=== PATIENT | male | born 1965 | race Caucasian/White ===

== ENCOUNTER 2017-05-23 16:05 | Emergency (ER) | payer BC, MEDICAID ==
[2017-05-23] MEDS ORDERED: HYDROCODONE/APAP 5/325 TAB PO ONE (16:20)
--- NOTE | 2017-05-23 16:49 | EDPHY ---
H & P Stated Complaint: post surgical(meniscus) r leg swelling and pain - Personal History Current Tetanus/Diphtheria Vaccine: Yes Tetanus Vaccine Date: 2008 - Medical/Surgical History Hx Asthma: No Hx Chronic Respiratory Disease: Yes Hx Diabetes: No Hx Cardiac Disease: No Hx Renal Disease: No Hx Cirrhosis: No Hx Alcoholism: No Hx HIV/AIDS: No Hx Splenectomy or Spleen Trauma: No Other PMH: HTN, migraines, brain surgery in in 1989, b/l ankle and knee surgeries and Rt elbow surgeries, chest pain, hypercholesteremia, tracheobronchomalacia, lymphnode, chronic pulmonary condition. neuropathy - Social History Smoking Status: Never smoked Time Seen by Provider: 05/23/17 16:28 HPI/ROS: CHIEF COMPLAINT: Right knee pain HISTORY OF PRESENT ILLNESS: 52-year-old male postop day 3 post right knee meniscectomy by Dr. Douglas Malhotra in [place] complaining of 3 days of right knee pain, inability to flex, inability to bear weight. States that starting the afternoon of his surgeries he developed knee pain. No fever no chills. No nausea or vomiting. No new trauma. Spoke with his orthopedic surgeon today who recommended he come to the ER for ultrasound imaging for possible DVT. Patient denies: Chest pain, dyspnea, back pain, syncope, near syncope, headache. REVIEW OF SYSTEMS: A ten point review of systems was performed and is negative with the exception of the items mentioned in the HPI PAST MEDICAL & SURGICAL HISTORY: Postop day 3 right knee meniscectomy SOCIAL HISTORY:nonsmoker PHYSICAL EXAM (Prior to examination, patient consented to physical exam, hands were washed and my usual and customary physical exam procedures followed) 1) GENERAL: Well-developed, well-nourished, alert and oriented. Appears uncomfortable 2) HEAD: Normocephalic, atraumatic 3) HEENT: Pupils equal, round, reactive to light bilaterally. Sclera anicteric. 4) NECK: Full range of motion, no meningeal signs. 5) LUNGS: Clear auscultation bilaterally, no wheezes 6) HEART: Regular rate and rhythm, no murmur, no heave, no gallop. 7) ABDOMEN: No guarding, no rebound, no focal tenderness,, 8) MUSCULOSKELETAL: Right lower extremity: Multiple surgical incisions granulating appropriately with no drainage no foul smell no dehiscence. No signs of infection. He has tenderness to palpation medial and lateral aspect of the knee. Keeping knee fully extended. Approximately 10 degrees of range of motion beyond which he has exquisite amount of pain. Pain with axial loading of the knee joint. Compartments are soft. Normal coloration. No erythema. No abnormal temperature. Negative Homans. No palpable cord. Distal DP PT pulses are present and brisk. 9) BACK: , no visual or palpable abnormality. 10) SKIN: No rash, no petechiae. 11) Psychiatric: Patient is oriented X 3, there is no agitation. DIFFERENTIAL DIAGNOSIS: in no particular include but not limited to DVT, septic arthritis, postsurgical pain ([place] Izaguirre) Constitutional: Initial Vital Signs Temperature (C) 37.2 C 05/23/17 16:10 Heart Rate 111 H 05/23/17 16:10 Respiratory Rate 16 05/23/17 16:10 Blood Pressure 136/95 H 05/23/17 16:10 O2 Sat (%) 97 05/23/17 16:10 O2 Delivery Mode Room Air Allergies/Adverse Reactions: No Known Allergies Allergy (Verified 05/23/17 16:06) Home Medications: Medication Instructions Recorded AMITRIPTYLINE HCL [Amitriptyline 100 mg PO HS 09/14/14 100 mg] Topiramate [Topamax 25MG (*)] 125 mg PO HS 09/14/14 Escitalopram Oxalate [Lexapro] 40 mg PO 08/28/15 Cyclobenzaprine [Flexeril 10 MG 10 mg PO TID PRN #15 tab 05/23/17 (*)] Eszopiclone 05/23/17 Oxycodone HCl/Acetaminophen 1 each PO Q6 PRN #15 tablet 05/23/17 [Oxycodone-Acetaminophen 10-325] Percocet 5-325 mg Tablet 05/23/17 Medical Decision Making - Diagnostics Imaging Results: Imaging Impressions Extremity Venous Study 05/23/17 16:41 Impression: No deep venous thrombosis right leg. Results called to Dr. Jt Mac. Procedures: Arthrocentesis: Using sterile technique the patient's right knee was anesthetized with lidocaine and epinephrine. 18 gauge needle was then placed in the lateral lower aspect and 70 cc of peach colored cloudy fluid was obtained. Patient tolerated the procedure well. He was injected with 5 cc of bupivacaine 0.5%. We will send the aspirate to the lab for cultures. (Jt Mac) ED Course/Re-evaluation: We discussed the ultrasound results. The patient is reassured. I suspect that he has a hemorrhagic effusion. We have paged Dr. Malhotra his surgeon for consultation. 6:10 p.m. I discussed the case with the PI bone drier operator for Dr. Malhotra office. She recommends we try to tap the knee to drain some of the fusion and then place an Sharif wrap and crutches and she will follow up with him on Thursday. 6:35 I was able to successfully drain 70 cc of synovial fluid from the patient' s knee. He had significant pain relief. It is peach colored and cloudy. We will send to the lab for cell count cultures. Patient tolerated the procedure well. He is asking for Flexeril and states that that has worked well for his pain. (Jt Mac) Differential Diagnosis: Partial list of the Differential diagnosis considered include but were not limited to; DVT, joint effusion, infection and although unlikely based on the history and physical exam, I also considered fracture, tendon injury, nerve injury. I discussed these differential diagnoses and the plan with the patient as well as the usual and expected course. The patient understands that the diagnosis is provisional and that in medicine we are not always correct and that further workup is often warranted. Usual and customary warnings were given. All of the patient's questions were answered. The patient was instructed to return to the emergency department should the symptoms at all worsen or return, otherwise to followup with the physician as we discussed. ( Jt Mac) - Data Points Laboratory Results: 05/23/17 18:33 Synovial Source Pending Synovial Color Pending Synovial Appearance Pending Synovial WBC Pending Synovial RBC Pending Medications Given: Discontinued Medications Hydrocodone Bitart/Acetaminophen ([place] 5/325) 2 tab PO EDNOW ONE Stop: 05/23/17 16:21 Last Admin: 05/23/17 16:24 Dose: 2 tab Departure - Departure Disposition: Home, Routine, Self-Care Clinical Impression: Right knee pain Qualifiers: Chronicity: acute Qualified Code(s): M25.561 - Pain in right knee Condition: Good Instructions: Knee Pain (ED) Referrals: followup, with Dr Malhotra on Thursday [Other] - As per Instructions Prescriptions: Cyclobenzaprine [Flexeril 10 MG (*)] 10 mg PO TID PRN #15 tab PRN Reason: Spasms Oxycodone HCl/Acetaminophen [Oxycodone-Acetaminophen 10-325] 1 each PO Q6 PRN # 15 tablet PRN Reason: Pain
[2017-05-23 18:49] VITALS: BP 120/74; PULSE 80; RESP 14; TEMP 98.4; O2SAT 94
[2017-05-23 19:29] LABS: WBC, SYNOVIAL FLUID 152216 /mm3 (0-150)
[2017-05-23] MEDS ORDERED: CEPHALEXIN 500MG PREPACK#4 BTL TAKEHOME ONE (19:43)
[2017-05-23] MEDS ORDERED: SULFAMET/TMP DS PREPACK#2 BTL TAKEHOME ONE (19:43)
== END 2017-05-23 18:48 | disposition home or self-care (01) ==
PROC: 0S9C3ZZ Drainage of Right Knee Joint, Percutaneous Approach (ICD-10-PCS; principal; 2017-05-23)
DX: M25.561 Pain in right knee (principal); B96.89 Other specified bacterial agents as the cause of diseases classified elsewhere; I10 Essential (primary) hypertension

== ENCOUNTER 2017-06-08 13:33 | Emergency (ER) | payer BC ==
--- NOTE | 2017-06-08 15:01 | EDPHY ---
H & P Stated Complaint: Infection R knee since arthroscopy 05/20/17;PICC line/IV Rocephin since 05/26 Time Seen by Provider: 06/08/17 14:47 HPI/ROS: CHIEF COMPLAINT: KNEE PAIN HISTORY OF PRESENT ILLNESS: Patient is a 52-year-old man with a history of right knee pain and infection. He had a meniscus repair on May [address] Malhotra at [facility]. He was seen here in the ER by me on the . Arthrocentesis revealed greater than 150,000 white cells and was positive on culture for Staph epidermidis that was pansensitive. He was started on antibiotics and followed up with his orthopedist. He was eventually admitted to the hospital at [facility] initially on vancomycin and Rocephin. He had his knee washed out a total of 3 times. He was discharged on the with a PICC line receiving IV Rocephin daily scheduled for total of 6 week course. He states that over the last 3 days however his knee has become slightly more swollen and painful. This is characteristic of his previous infections. He is followed by Infectious Disease doctor Monique Christie at [facility]. She suggested that he come in for readmission and cultures. The patient was unhappy with [facility] and he and his family decided to come here. He has not had a fever. He has not had any erythema. He does have chills. No nausea vomiting. No abdominal pain. REVIEW OF SYSTEMS: Constitutional: denies: chills, fever, recent illness, recent injury EENTM: denies: blurred vision, double vision, nose congestion Respiratory: denies: cough, shortness of breath Cardiac: denies: chest pain, irregular heart rate, lightheadedness, palpitations Gastrointestinal/Abdominal: denies: abdominal pain, diarrhea, nausea, vomiting, blood streaked stools Genitourinary: denies: dysuria, frequency, hematuria, pain Musculoskeletal: See HPI Skin: denies: lesions, rash, jaundice, bruising Neurological: denies: headache, numbness, paresthesia, tingling, dizziness, weakness Hematologic/Lymphatic: denies: blood clots, easy bleeding, easy bruising Immunologic/allergic: denies: HIV/AIDS, transplant EXAM: GENERAL: Well-appearing, well-nourished and in no acute distress. HEAD: Atraumatic, normocephalic. EYES: Pupils equal round and reactive to light, extraocular movements intact, sclera anicteric, conjunctiva are normal. ENT: TMs normal, nares patent, oropharynx clear without exudates. Moist mucous membranes. NECK: Normal range of motion, supple without lymphadenopathy or JVD. LUNGS: Breath sounds clear to auscultation bilaterally and equal. No wheezes rales or rhonchi. HEART: Regular rate and rhythm without murmurs, rubs or gallops. ABDOMEN: Soft, nontender, normoactive bowel sounds. No guarding, no rebound. No masses appreciated. BACK: No CVA tenderness, no spinal tenderness, step-offs or deformities EXTREMITIES right knee with mild swelling and tenderness. Pain with range of motion. No erythema. Slightly warm to the touch. NEUROLOGICAL: Cranial nerves II through XII grossly intact. Normal speech, normal gait. 5/5 strength, normal movement in all extremities, normal sensation PSYCH: Normal mood, normal affect. SKIN: Warm, dry, normal turgor, no visible rashes or lesions. Source: Patient Exam Limitations: No limitations - Personal History Current Tetanus Diphtheria and Acellular Pertussis (TDAP): Yes Tetanus Vaccine Date: 2008 - Medical/Surgical History Hx Asthma: No Hx Chronic Respiratory Disease: Yes Hx Diabetes: No Hx Cardiac Disease: No Hx Renal Disease: No Hx Cirrhosis: No Hx Alcoholism: No Hx HIV/AIDS: No Hx Splenectomy or Spleen Trauma: No Other PMH: HTN, migraines, brain surgery in in 1989, b/l ankle and knee surgeries and Rt elbow surgeries, chest pain, hypercholesteremia, tracheobronchomalacia, lymphnode, chronic pulmonary condition. neuropathy - Family History Significant Family History: No pertinent family hx - Social History Smoking Status: Never smoked Alcohol Use: Sober Drug Use: None Constitutional: Initial Vital Signs Temperature (C) 37.1 C 06/08/17 13:40 Heart Rate 90 06/08/17 13:40 Respiratory Rate 18 06/08/17 13:40 Blood Pressure 140/84 H 06/08/17 13:40 O2 Sat (%) 98 06/08/17 13:40 O2 Delivery Mode Room Air Allergies/Adverse Reactions: No Known Allergies Allergy (Verified 06/08/17 13:44) Home Medications: Medication Instructions Recorded AMITRIPTYLINE HCL [Amitriptyline 100 mg PO HS 09/14/14 100 mg] Topiramate [Topamax 25MG (*)] 125 mg PO HS 09/14/14 Percocet 5-325 mg Tablet 05/23/17 Oxycodone HCl [Oxyir] 5 - 10 mg PO Q4 PRN #30 capsule 06/08/17 cefTRIAXone [Rocephin 1 gm Vial 1 gm IV DAILY 06/08/17 (RX)ro] Medical Decision Making Procedures: Arthrocentesis: Patient's right knee was cleaned with chlorhexidine and draped in sterile conditions. Attempt was made arthrocentesis from the medial aspect but no fluid aspirated. Then attempt from the lateral aspect and 4 cc of bloody synovial fluid obtained and sent to the lab for culturing. Patient tolerated procedure well. I then injected for cc of bupivacaine 0.5% into the joint. ED Course/Re-evaluation: 3:15 p.m. I discussed the case with ID doctor Renee from [facility]. She states that all the cultures and surgical samples taken for them have been negative for growth. She states that he is not antibiotic failure because there cultures have been negative. She suggests CRP and sed rate and states that she is happy to follow him with outpatient if he does not require admission. 6:00 p.m. I discussed the patient's lab results with Dr. Duran his Infectious Disease doctor. She does not think that this represents an infection. She recommends that he continue the Rocephin at home. The patient is agreeable to this but is asking for better pain control. I will separate his Percocet in 2 separate prescriptions for oxycodone and Tylenol and also encouraged him to take ibuprofen. He is agreeable to this and is asking for referral to our Infectious Disease doctors here for follow-up. Differential Diagnosis: Partial list of the Differential diagnosis considered include but were not limited to; septic joint, hemorrhagic effusion, anxiety and although unlikely based on the history and physical exam, I also considered fracture, dislocation , vascular injury. I discussed these differential diagnoses and the plan with the patient as well as the usual and expected course. The patient understands that the diagnosis is provisional and that in medicine we are not always correct and that further workup is often warranted. Usual and customary warnings were given. All of the patient's questions were answered. The patient was instructed to return to the emergency department should the symptoms at all worsen or return, otherwise to followup with the physician as we discussed. - Data Points Laboratory Results: Laboratory Results 06/08/17 15:50 06/08/17 15:50 06/08/17 16:23 Fl Pathologist Review Edgardo CASEY MD Microbiology Results: MICROBIOLOGY 06/08/17 16:17 Knee - Aspirate Gram Stain - Final 06/08/17 16:17 Knee - Aspirate Anaerobic Culture - Preliminary Medications Given: Discontinued Medications Hydromorphone HCl (Dilaudid) 0.5 mg IVP EDNOW ONE Stop: 06/08/17 15:37 Last Admin: 06/08/17 16:04 Dose: 0.5 mg Hydromorphone HCl (Dilaudid) 0.5 mg IVP EDNOW ONE Stop: 06/08/17 17:38 Last Admin: 06/08/17 17:39 Dose: 0.5 mg Departure - Departure Disposition: Home, Routine, Self-Care Clinical Impression: Bleeding into joint Condition: Fair Instructions: Swollen Knee Joint (ED) Additional Instructions: In addition to the oxycodone take Tylenol 1000 mg every 6 hours and ibuprofen 600 mg every 6 hours as needed. Referrals: NONE *PRIMARY CARE P,. [Primary Care Provider] - As per Instructions Barbara Morales MD [Medical Doctor] - As per Instructions Prescriptions: Oxycodone HCl [Oxyir] 5 - 10 mg PO Q4 PRN #30 capsule PRN Reason: Pain, Severe
[2017-06-08] MEDS ORDERED: HYDROmorphONE/DILAUDID 1 MG/ML SYR IVP ONE ×2 (15:36→17:37)
[2017-06-08] MEDS ORDERED: HYDROmorphONE/DILAUDID 1 MG/ML SYR ONE ×2 (15:44→17:31)
[2017-06-08 16:11] LABS: % IMMATURE GRANULYOCYTES 1.5 % (0.0-1.1); ADD DIFF? NO; ADD MORPH? NO; ADD SCAN? NO; ATYPICAL LYMPHOCYTE FLAG 10 (0-99); FRAGMENT RBC FLAG 0 (0-99); HEMATOCRIT 37.9 % (40.0-51.0); HEMOGLOBIN 13.2 g/dL (13.7-17.5); LEFT SHIFT FLG 20 (0-99); LIPEMIA HEMOLYSIS FLAG 90 (0-99); MEAN CELL HEMOGLOBIN 30.2 pg (27.9-34.1); MEAN CELL HEMOGLOBIN CONCENTR. 34.8 g/dL (32.4-36.7); MEAN CELL VOLUME 86.7 fL (81.5-99.8); MEAN PLATELET VOLUME 10.1 fL (8.7-11.7); PLATELET CLUMPS FLAG 0 (0-99); PLATELET COUNT 343 10^3/uL (150-400); RED BLOOD CELL COUNT 4.37 10^6/uL (4.40-6.38); RED CELL DISTRIBUTION WIDTH 11.6 % (11.5-15.2)
[2017-06-08 16:20] LABS: INR 1.11 (0.83-1.16); PROTIME(PATIENT) 14.2 SEC (12.0-15.0)
[2017-06-08 16:29] LABS: ANION GAP 12 mEq/L (8-16); BILIRUBIN,TOTAL 0.5 mg/dL (0.1-1.4); CALCIUM 9.5 mg/dL (8.5-10.4); CARBON DIOXIDE 21 mEq/l (22-31); CHLORIDE 105 mEq/L (97-110); GLOMERULAR FILTRATION RATE > 60; GLUCOSE 90 mg/dL (70-100); POTASSIUM 4.9 mEq/L (3.5-5.2); SODIUM 138 mEq/L (134-144)
[2017-06-08 16:44] LABS: SEDIMENTATION RATE 44 MM/HR (0-20)
[2017-06-08 16:50] LABS: C-REACTIVE PROTEIN 145.3 mg/L (<10.0)
[2017-06-08 17:37] VITALS: RESP 16; O2SAT 99
[2017-06-08 17:45] LABS: WBC, SYNOVIAL FLUID 8210 /mm3 (0-150)
[2017-06-08 18:21] VITALS: BP 126/70; PULSE 94; TEMP 98.4
== END 2017-06-08 18:24 | disposition home or self-care (01) ==
PROC: 0M9N3ZZ Drainage of Right Knee Bursa and Ligament, Percutaneous Approach (ICD-10-PCS; principal; 2017-06-08)
DX: M25.061 Hemarthrosis, right knee (principal); I10 Essential (primary) hypertension
CPT/HCPCS: 96374; J1170

== ENCOUNTER → 2017-09-23 | Outpatient (CLI) | payer BC ==
[~2017-09-23] MED LIST: GADOBUTROL 10 ML VIAL IVP ONE
== END ==
LOC: FIMAGING 10:42
PROVIDERS: ATTEND Orthopaedic Surgery
DX: M00.9 Pyogenic arthritis, unspecified (principal)
CPT/HCPCS: A9585

== ENCOUNTER 2018-05-02 11:23 | Emergency (ER) | payer BC ==
[2018-05-02] MEDS ORDERED: KETOROLAC 30 MG/1 ML SDV IVP ONE ×2 (11:37→12:50)
[2018-05-02] MEDS ORDERED: NS 1,000 ML IV ONE (11:37)
[2018-05-02] MEDS ORDERED: METOCLOPRAMIDE 10 MG/2 ML VIAL IVP ONE (11:37)
[2018-05-02] MEDS ORDERED: DEXAMETHASONE 10 MG/ML VIAL IVP ONE (11:37)
--- NOTE | 2018-05-02 11:41 | EDPHY ---
H & P Time Seen by Provider: 05/02/18 11:30 HPI/ROS: CHIEF COMPLAINT: Headache HISTORY OF PRESENT ILLNESS: Patient is long history of migraine headaches and had 8 ED visits between March of 2014 and March of 2015 but is doing better since. He gets Botox injections every 3 months and has sumatriptan at home. He presents with typical migraine which started on the right side of his head yesterday and was not thunderclap in onset or worst of life. He took a sumatriptan yesterday and another 1 at 5 a.m. 6:30 a.m. Today without relief. Presents with severe right-sided headache worse with light associated with nausea identical to previous migraine headaches. REVIEW OF SYSTEMS: Eye: no change in vision or double vision ENT: no sore throat or earache Cardiac: no chest pain or syncope Pulmonary: no cough or SOB Abdomen: no vomiting, diarrhea, abdominal pain Musculoskeletal: No neck stiffness Skin: no rash Neuro: HPI Constitutional: no fever : no urinary symptoms A comprehensive 10 point review of systems is otherwise negative aside from elements mentioned in the history of present illness. PAST MEDICAL HISTORY: Includes Chiari malformation surgery in 1989, hypertension, orthopedic previous surgeries, hypercholesterolemia, chronic migraine headaches. Social history: Nonsmoker, his neurologist is Balaji Mendoza General Appearance: Alert and conversant, cooperative. Eyes: No scleral icterus. Pupils equal reactive extraocular motions intact. No proptosis. ENT, Mouth: Normal mucous membranes. Normal pharynx and tympanic membranes, no facial erythema or swelling. Respiratory: Normal respiratory effort, breath sounds equal, lungs are clear to auscultation. Cardiovascular: Regular rate and rhythm. Gastrointestinal: Abdomen is soft and non tender. Neurological: Alert, face symmetric, normal motor and sensory in extremities. No pronator drift, normal [id number] bilaterally, fluent speech. Skin: Warm and dry, no rashes. Musculoskeletal: No neck stiffness. Psychiatric: Not agitated. Emergency Department course/MDM: Patient presents with his typical migraine headache unresponsive to sumatriptan. Toradol 15, dexamethasone 10, Benadryl 50, Reglan 10. 1251: Re-examined, patient feels better,"60% gone." Repeat IV Toradol, dilaudid 0.5mg, discharge home. Smoking Status: Never smoked Constitutional: Initial Vital Signs Temperature (C) 36.8 C 05/02/18 11:27 Heart Rate 90 05/02/18 11:27 Respiratory Rate 16 05/02/18 11:27 Blood Pressure 143/92 H 05/02/18 11:27 O2 Sat (%) 98 05/02/18 11:27 O2 Delivery Mode Room Air Allergies/Adverse Reactions: No Known Allergies Allergy (Verified 05/02/18 11:26) Home Medications: Medication Instructions Recorded AMITRIPTYLINE HCL [Amitriptyline 100 mg PO HS 09/14/14 100 mg] Topiramate [Topamax 25MG (*)] 125 mg PO HS 09/14/14 Medical Decision Making Differential Diagnosis: Differential diagnosis considered for headache including but not limited to subarachnoid hemorrhage, migraine headache, tension headache and infectious causes such as meningitis, pharyngitis and sinusitis. - Data Points Medications Given: Discontinued Medications Dexamethasone (Decadron Injection) 10 mg IVP EDNOW ONE Stop: 05/02/18 11:38 Last Admin: 05/02/18 12:30 Dose: 10 mg Diphenhydramine HCl (Benadryl Injection) 50 mg IVP EDNOW ONE Stop: 05/02/18 11:38 Last Admin: 05/02/18 12:29 Dose: 50 mg Hydromorphone HCl (Dilaudid) 0.5 mg IVP EDNOW ONE Stop: 05/02/18 13:28 Last Admin: 05/02/18 13:56 Dose: Not Given Sodium Chloride (Ns) 1,000 mls @ 0 mls/hr IV ONCE ONE; Wide Open PRN Reason: Protocol Stop: 05/02/18 11:38 Last Admin: 05/02/18 12:29 Dose: 1,000 mls Ketorolac Tromethamine (Toradol) 15 mg IVP EDNOW ONE Stop: 05/02/18 11:38 Last Admin: 05/02/18 12:29 Dose: 15 mg Ketorolac Tromethamine (Toradol) 15 mg IVP EDNOW ONE Stop: 05/02/18 12:51 Last Admin: 05/02/18 12:56 Dose: 15 mg Metoclopramide HCl (Reglan Injection) 10 mg IVP EDNOW ONE Stop: 05/02/18 11:38 Last Admin: 05/02/18 12:29 Dose: 10 mg Departure - Departure Disposition: Home, Routine, Self-Care Clinical Impression: Migraine headache Qualifiers: Migraine type: unspecified Status migrainosus presence: without status migrainosus Intractability: not intractable Qualified Code(s): G43.909 - Migraine, unspecified, not intractable, without status migrainosus Condition: Good Instructions: Migraine Headache (ED) Referrals: Balaji Mendoza MD [Medical Doctor] - As per Instructions
[2018-05-02] MEDS ORDERED: HYDROmorphONE/DILAUDID 2 MG/ML INJ IVP ONE (13:27)
[2018-05-02 13:55] VITALS: BP 129/81
== END 2018-05-02 13:56 | disposition home or self-care (01) ==
DX: G43.909 Migraine, unspecified, not intractable, without status migrainosus (principal); E86.9 Volume depletion, unspecified; I10 Essential (primary) hypertension
CPT/HCPCS: 96374; J1100; J1200; J1885; J2765

== ENCOUNTER 2018-11-02 19:25 | Emergency (ER) | payer BC ==
--- NOTE | 2018-11-02 20:05 | EDPHY ---
H & P Time Seen by Provider: 11/02/18 19:34 HPI/ROS: CHIEF COMPLAINT: Altered mental status and slurred speech HISTORY OF PRESENT ILLNESS: 53-year-old man has history of complicated migraines and Chiari malformation surgery in 1989. He is brought in by his family today for some altered mental status which is since mostly resolved. He had is typically bad migraine on Thursday night and had nausea and vomiting for about 24 hr. Thursday and Thursday and Thursday felt very tired. His family some on Thursday night he just appeared very sleepy and exhausted. He says he took his regular medication including Topamax amitriptyline and Lunesta on Thursday night but then his said on Thursday morning he said that he took it again even though he is only supposed to take it in the evening. They found him that morning trying to get out of bed and a little bit confused and slurring his words and out of it. The left to go to a movie and run some errands at 10:00 a.m. And came back at 5:00 p.m. And he was still altered and brought him here. Currently the patient does not have a headache, he feels normal, and the family says that his symptoms have resolved at this time. REVIEW OF SYSTEMS: Eye: no change in vision ENT: no sore throat Cardiac: no chest pain or syncope Pulmonary: no cough or SOB Abdomen: Nausea and vomiting on Thursday and Thursday but no diarrhea or abdominal pain Musculoskeletal: no back pain, some intermittent right leg pain which is not new Skin: no rash Neuro: HPI Constitutional: no fever : Feels like he has not been able to urinate normally for the last 3 days A comprehensive 10 point review of systems is otherwise negative aside from elements mentioned in the history of present illness. PAST MEDICAL HISTORY: Includes migraine headaches, hypertension, Chiari malformation surgery in 1989. Social history: Here with , son, [id number] General Appearance: Alert and conversant, cooperative. Eyes: No scleral icterus. Pupils equal reactive extraocular motion intact. ENT, Mouth: Normal mucous membranes. No tongue laceration or abrasion. Respiratory: Normal respiratory effort, breath sounds equal, lungs are clear to auscultation. Cardiovascular: Regular rate and rhythm. Gastrointestinal: Abdomen is soft and non tender. Neurological: Alert, face symmetric, normal motor and sensory in extremities. No tremor, no pronator drift, [id number] normal bilaterally, fluent speech. Oriented x3. Ambulatory to the bathroom. Toes downgoing. Skin: Warm and dry, no rashes. Musculoskeletal: No meningeal signs. No neck stiffness. Psychiatric: Not agitated. Emergency Department course/MDM: Likely due to medication and lack of sleep from being up all night on Thursday and Thursday. It sounds he may have taken a double dose of amitriptyline and Lunesta along with hydrocodone which he does not normally take. Plan for i-STAT chemistry 8, noncontrast head CT given change in his usual pattern of migraines and altered mental status, bladder scanning for difficulty with urination. I specifically think stroke or seizure or vascular dissection are all less likely than toxic metabolic from medications and lack of sleep. 2025: Head CT noncontrast is negative acute per Dr. Bates. 2058: Discussion with patient and family, Matthew catheter placement consented with 1 L in the bladder, even postvoid residual is greater than 600. Differential includes but not limited to amitriptyline, prostatic hypertrophy, cauda equina, UTI unlikely given negative urinalysis. Urology outpatient follow -up. Smoking Status: Never smoked Constitutional: Initial Vital Signs Temperature (C) 36.8 C 11/02/18 19:28 Heart Rate 107 H 11/02/18 19:28 Respiratory Rate 16 11/02/18 19:28 Blood Pressure 129/93 H 11/02/18 19:28 O2 Sat (%) 95 11/02/18 19:28 O2 Delivery Mode Room Air Allergies/Adverse Reactions: No Known Allergies Allergy (Verified 11/02/18 19:31) Home Medications: Medication Instructions Recorded AMITRIPTYLINE HCL [Amitriptyline 100 mg PO HS 09/14/14 100 mg] Topiramate [Topamax 25MG (*)] 125 mg PO HS 09/14/14 Aimovig Autoinjector 11/02/18 Eszopiclone 11/02/18 Hydrocodone-Acetamin 10-300 mg 11/02/18 oxyCODONE CR 11/02/18 Medical Decision Making - Diagnostics Imaging Results: Imaging Impressions Head CT 11/02/18 20:02 Impression: 1. No significant intracranial abnormality seen. 2. 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 If symptoms worsen, additional imaging may be necessary. Findings discussed with Yeyo Calderon M.D. at 20:26 hour, 11/02/2018. Imaging: Discussed imaging studies w/ toll settlement clerk Radiologist Differential Diagnosis: Differential for altered mental status considered including but not limited to seizure, intracranial mass or bleed or FIN[employer] VICE [employer] infection, toxic metabolic, drug or medication related. - Data Points Laboratory Results: 11/02/18 11/02/18 20:20 19:53 POC Hgb 16.3 gm/dL gm/dL (13.7-17.5) POC Hct 48 % % (40-51) POC Sodium 141 mEq/L mEq/L (135-145) POC Potassium 3.7 mEq/L mEq/L (3.3-5.0) POC Chloride 104 mEq/L mEq/L (97-110) POC BUN 11 mg/dL mg/dL (7-23) POC Creatinine 1.2 mg/dL mg/dL (0.7-1.3) POC Glucose 130 mg/dL H mg/dL (70-100) Urine Color YELLOW Urine Appearance CLEAR Urine pH 5.0 (5.0-7.5) Ur Specific [place] 1.016 (1.002-1.030) Urine Protein NEGATIVE (NEGATIVE) Urine Ketones NEGATIVE (NEGATIVE) Urine Blood NEGATIVE (NEGATIVE) Urine Nitrate NEGATIVE (NEGATIVE) Urine Bilirubin NEGATIVE (NEGATIVE) Urine Urobilinogen 4.0 EU H EU (0.2-1.0) Ur Leukocyte Esterase NEGATIVE (NEGATIVE) Urine Glucose NEGATIVE (NEGATIVE) Medications Given: Discontinued Medications Lidocaine (Uroject Lidocaine 2% Jelly) 20 ml UR EDNOW ONE Stop: 11/02/18 21:00 Last Admin: 11/02/18 21:04 Dose: 20 ml Point of Care Test Results: Chemistry 11/02/18 19:53 POC Sodium 141 mEq/L mEq/L (135-145) POC Potassium 3.7 mEq/L mEq/L (3.3-5.0) POC Chloride 104 mEq/L mEq/L (97-110) POC BUN 11 mg/dL mg/dL (7-23) POC Creatinine 1.2 mg/dL mg/dL (0.7-1.3) POC Glucose 130 mg/dL H mg/dL (70-100) ISTAT H&H 11/02/18 19:53 POC Hgb 16.3 gm/dL gm/dL (13.7-17.5) POC Hct 48 % % (40-51) Departure - Departure Disposition: Home, Routine, Self-Care Clinical Impression: Acute urinary retention, transient altered mental status Condition: Good Instructions: Urinary Retention in Men (ED), Matthew Catheter Placement and Care (ED) Referrals: MARINE GUTIERREZ MD [Other] - As per Instructions Max Bowers MD [Medical Doctor] - As per Instructions (this week with urology in the office for urinary retention)
[2018-11-02] MEDS ORDERED: LIDOCAINE 2% JELLY 20 ML (UROJECT) UR ONE (20:59)
[2018-11-02 22:07] VITALS: BP 141/86
== END 2018-11-02 22:07 | disposition home or self-care (01) ==
DX: R33.9 Retention of urine, unspecified (principal); R41.82 Altered mental status, unspecified; R47.81 Slurred speech; G43.909 Migraine, unspecified, not intractable, without status migrainosus
CPT/HCPCS: 82435-PO; 82565-PO; 82947-PO; 84132-PO; 84295-PO; 84520-PO; 85014-PO

== ENCOUNTER 2018-11-23 14:00 | Emergency (ER) | payer BC ==
[2018-11-23] MEDS ORDERED: KETOROLAC 30 MG/1 ML SDV IVP ONE (14:20)
[2018-11-23] MEDS ORDERED: METOCLOPRAMIDE 10 MG/2 ML VIAL IVP ONE (14:20)
[2018-11-23] MEDS ORDERED: ONDANSETRON 4 MG/2 ML VIAL IVP ONE (14:20)
[2018-11-23] MEDS ORDERED: NS 1,000 ML IV ONE (14:20)
[2018-11-23] MEDS ORDERED: DEXAMETHASONE 10 MG/ML VIAL IVP ONE (14:20)
--- NOTE | 2018-11-23 14:26 | EDPHY ---
H & P Time Seen by Provider: 11/23/18 14:05 HPI/ROS: HPI Migraine headache. 53-year-old male by private vehicle with his . This patient has a history of migraine headaches. He reports atypical gradual onset migraine headache starting on Thursday. He reports that it has been intermittent since that time. He reports that has been worse today. He describes it as right-sided parietal, sharp and aching. He has had associated nausea but no vomiting. This is typical of his previous migraine headaches. He has been seen in our emergency department several times in the past for treatment of migraine headaches. ROS: Constitutional: No fever, no chills. No weakness. Eyes: No discharge. No changes in vision. ENT: No sore throat. No nasal congestion or rhinorrhea. Gastrointestinal: No abdominal pain, no vomiting, as above. Musculoskeletal: No back pain. No neck pain. No myalgias or arthralgias. Skin: No rashes. Neurological: As above. No focal weakness or altered sensation. Past medical history: Migraine headaches, hypertension, brain surgery, multiple orthopedic surgeries, hyperlipidemia, tracheal bronchomalacia, chronic pulmonary disease, neuropathy. Social history: Nonsmoker. Here with his . No alcohol. Physical Exam: General Appearance: Alert, he appears uncomfortable but he is not in distress. This patient is responding to questions appropriately and in full sentences. This patient appears well-hydrated and well-nourished. Eyes: Pupils equal and round and reactive to light at 3-2 mm bilaterally, no pallor or injection. No lid edema, erythema or injection. No nystagmus. Mild photophobia. Gastrointestinal: Abdomen is soft and nontender, no masses, bowel sounds normal. No focal tenderness at McBurney's point. No Flowers sign. Neurological: Motor sensory function is grossly intact. Cranial nerves are normal. Gait is normal. Skin: Warm and dry, no rashes. Musculoskeletal: Neck is supple and nontender. No pain on flexion of his neck. Extremities are symmetrical. All joints range without pain or impingement. Psychiatric: No agitation. No depression. Database: EKG: Imaging: Procedures: Emergency department course: Triage vital signs reviewed and are normal. IV was placed. He has no medication allergies. He was started on IV normal saline with 1 L to be given over the next hour. He will be given 30 mg of IV Toradol, 10 mg of IV Decadron , 10 mg of IV Reglan and 25 mg of IV Benadryl initially. He has no history of renal dysfunction or peptic ulcer disease. Normal creatinine from November 02. 3:30 p.m., the patient was re-evaluated. He states that he just recently received his medications. He reports he is feeling better but still has a headache. He will be given an additional 0.5 mg of IV hydromorphone as needed. 4:30 p.m., the patient was re-evaluated, he reports his headache has resolved. He is feeling much better. Repeat neurologic Assessment is nonfocal. His neck is supple. No pain on flexion of his neck. He is up and ambulatory with a normal gait. He feels comfortable going home with his and I feel he is safe for discharge. Follow-up and return to emergency department precautions reviewed with him. All of his questions were answered. He was discharged from the emergency department in good condition with his who is driving. Differential Diagnosis: The differential diagnosis on this patient includes but is not limited to migraine headache. Subarachnoid hemorrhage, meningitis, encephalitis, temporal arteritis, cavernous sinus thrombosis, sagittal sinus thrombosis. This represents a partial list of diagnoses considered. These considerations are based on history, physical exam, past history, reassessment and diagnostic testing. Smoking Status: Never smoked Constitutional: Initial Vital Signs Temperature (C) 36.6 C 11/23/18 14:05 Heart Rate 82 11/23/18 14:05 Respiratory Rate 18 11/23/18 14:05 Blood Pressure 124/88 H 11/23/18 14:05 O2 Sat (%) 98 11/23/18 14:05 O2 Delivery Mode Room Air Allergies/Adverse Reactions: No Known Allergies Allergy (Verified 11/23/18 14:03) Home Medications: Medication Instructions Recorded AMITRIPTYLINE HCL [Amitriptyline 100 mg PO HS 09/14/14 100 mg] Topiramate [Topamax 25MG (*)] 125 mg PO HS 09/14/14 Aimovig Autoinjector 11/02/18 Hydrocodone-Acetamin 10-300 mg 11/02/18 oxyCODONE CR 11/02/18 Botox 11/23/18 SUMAtriptan 11/23/18 Medical Decision Making - Data Points Medications Given: Discontinued Medications Dexamethasone (Decadron Injection) 10 mg IVP EDNOW ONE Stop: 11/23/18 14:21 Last Admin: 11/23/18 15:17 Dose: 10 mg Diphenhydramine HCl (Benadryl Injection) 25 mg IVP EDNOW ONE Stop: 11/23/18 14:21 Last Admin: 11/23/18 15:14 Dose: 25 mg Sodium Chloride (Ns) 1,000 mls @ 0 mls/hr IV ONCE ONE; Wide Open PRN Reason: Protocol Stop: 11/23/18 14:21 Last Admin: 11/23/18 15:17 Dose: 1,000 mls Ketorolac Tromethamine (Toradol) 30 mg IVP EDNOW ONE Stop: 11/23/18 14:21 Last Admin: 11/23/18 15:15 Dose: 30 mg Metoclopramide HCl (Reglan Injection) 10 mg IVP EDNOW ONE Stop: 11/23/18 14:21 Last Admin: 11/23/18 15:15 Dose: 10 mg Ondansetron HCl (Zofran) 4 mg IVP EDNOW ONE Stop: 11/23/18 14:21 Last Admin: 11/23/18 15:16 Dose: 4 mg Departure - Departure Disposition: Home, Routine, Self-Care Clinical Impression: Headache Condition: Good Instructions: Migraine Headache (ED) Additional Instructions: Read and follow provided instructions. Follow-up with your primary care physician in 1-2 days for re-evaluation as needed. Return to the emergency department for return of headache, vomiting, confusion or other serious concerns. Referrals: MARINE GUTIERREZ [Other] - As per Instructions
[2018-11-23] MEDS ORDERED: DEXAMETHASONE 4 MG/ML VIAL ONE ×2 (14:32→15:05)
[2018-11-23] MEDS ORDERED: KETOROLAC 30 MG/1 ML SDV ONE (15:09)
[2018-11-23] MEDS ORDERED: METOCLOPRAMIDE 10 MG/2 ML VIAL ONE (15:10)
[2018-11-23] MEDS ORDERED: ONDANSETRON 4 MG/2 ML VIAL ONE (15:10)
[2018-11-23] MEDS ORDERED: HYDROmorphONE/DILAUDID 2 MG/ML INJ IVP ONE (15:29)
[2018-11-23 16:49] VITALS: BP 138/86
== END 2018-11-23 16:48 | disposition home or self-care (01) ==
DX: G43.909 Migraine, unspecified, not intractable, without status migrainosus (principal); E86.9 Volume depletion, unspecified
CPT/HCPCS: 96374; J1100; J1200; J1885; J2405; J2765

== ENCOUNTER → 2018-12-01 | Outpatient (CLI) | payer BC | LOC: FIMAGING 18:36 | PROVIDERS: ATTEND Psychiatry & Neurology Neurology | DX: G43.719 Chronic migraine without aura, intractable, without status migrainosus (principal) ==